=== PATIENT | male | born 1985 | race Caucasian/White ===

== ENCOUNTER 2017-06-15 20:05 | Emergency (ER) | payer OTHER ==
[~2017-06-15] VITALS: Ht 175.3 cm; Wt 95.2 kg
[~2017-06-15 20:05] MED LIST: ADDERALL20 M1 PO; ADVAIR 2501 DISK W/D PO; ALBUTEROL17 GM INH; ALEVE; AMOXICILLIN500 M1 PO; AMOXICILLIN875 MG PO; AURALGAN EAR DR14 ML OT; BENTYL20 MG PO; BENZONATATE PO; CIPROFLOXACIN500 M1 PO; FLEXERIL PO; FLONASE 0.05% N16 G1 INH; FLOXIN10 ML OT; IBUPROFEN PO; LORTAB 7.5-5001 TAB PO; MOBIC PO; NEXIUM PO; NO MEDICATIONS; NORFLEX100 M1 PO; OMEPRAZOLE40 M1 PO; PHENERGAN25 MG PO; PREDNISONE PO; PRILOSEC PO; SUDAFED PO; TORADOL10 MG PO; VICODIN 5/500 T1 TAB PO; VOLTAREN75 MG PO; ZITHROMAX PO; ZOFRAN ODT4 MG PO; ZOFRAN PO; ZYRTEC PO; ZYRTEC10 M2 PO
[2017-06-15] MEDS ORDERED: NO MEDICATIONS (20:14)
== END 2017-06-15 21:26 | disposition home or self-care (01) ==
LOC: SED 20:05
DX: T40.1X1A Poisoning by heroin, accidental (unintentional), initial encounter (principal); F41.9 Anxiety disorder, unspecified; K21.9 Gastro-esophageal reflux disease without esophagitis; F98.8 Other specified behavioral and emotional disorders with onset usually occurring in childhood and adolescence; F17.200 Nicotine dependence, unspecified, uncomplicated
CPT/HCPCS: 96361; 96374; 96375; 99284